=== PATIENT | male | born 1990 | race African-American/Black ===

== ENCOUNTER 2020-03-16 12:59 | Emergency (ER) | payer OTHER ==
[2020-03-16 13:05] VITALS: BP 147/97; PULSE 59; BMI 44.4
[2020-03-16] MEDS ORDERED: KETOROLAC TROMETHAMINE 60 MG/2 ML VIAL IM ONE (14:06)
[2020-03-16] MEDS ORDERED: KETOROLAC TROMETHAMINE 60 MG/2 ML VIAL ONE (14:09)
== END 2020-03-16 14:18 | disposition home or self-care (01) ==
LOC: JERFT 12:59 → JER 12:59 → JERFT 14:18
PROC: 3E0233Z Introduction of Anti-inflammatory into Muscle, Percutaneous Approach (ICD-10-PCS; principal; 2020-03-16)
DX: K08.89 Other specified disorders of teeth and supporting structures (principal); K02.9 Dental caries, unspecified
CPT/HCPCS: 99284-25